=== PATIENT | male | born 1960 | race Caucasian/White ===

== ENCOUNTER 2019-07-29 13:00 | Outpatient (CLI) | payer OTHER | END 2019-07-29 13:01 | disposition home or self-care (01) | LOC: DTY/OP 13:00 | PROVIDERS: ATTEND Family Medicine | DX: R73.03 Prediabetes (principal) | CPT/HCPCS: 97802 ==

== ENCOUNTER 2024-02-10 07:29 | Outpatient (CLI) | payer OTHER | END 2024-02-10 07:30 | disposition home or self-care (01) | LOC: SCSLAB 07:29 | PROVIDERS: ATTEND Family Medicine | DX: Z53.9 Procedure and treatment not carried out, unspecified reason (principal) ==